=== PATIENT | female | born 1975 | race Caucasian/White ===

== ENCOUNTER → 2017-09-20 | Outpatient (CLI) | payer OTHER ==
[~2017-09-20] MED LIST: ASPI-1471 PO; CHOL500025 PO; DAR100 PO; ESOM20CA31 PO; METXL50 PO; MULT1CAP41 PO; RANI-325 PO
--- NOTE | 2017-09-23 10:54 | RADIOLOGY IMAGING REPORT ---
FACILITY: [facility] - [place] PATIENT NAME: JOSEPH SUAREZ : [id number] MR: [id number] V: [id number] EXAM DATE: [id number] ORDERING PHYSICIAN: MARIELY SCHAFER TECHNOLOGIST: Ana Delacruz PROCEDURE:BILATERAL DIGITAL SCREENING MAMMOGRAM WITH CAD ASSISTED INTERPRETATION & 3D TOMOSYNTHESIS COMPARISON:Prior mammograms 05/29/16, 05/22/16, 12/02/14, 08/27/13, 04/25/12. INDICATIONS:SCREENING FINDINGS: Extremely dense heterogeneous fibroglandular tissue is seen throughout the breasts. The parenchymal pattern has remained stable allowing for difference in mammographic technique & patient positioning. There is no evidence of malignant appearing mass, malignant appearing calcifications or other secondary sign of malignancy in either breast. DIAGNOSTIC CATEGORY 1--NEGATIVE. RECOMMENDATIONS: ROUTINE MAMMOGRAM AND CLINICAL EVALUATION. IMPRESSION: BIRADS 1: Negative. No significant abnormality is seen. Dictated by: Sydney Altamirano M.D. on 09/20/2017 at 14:46 Transcribed by: IVAN on 09/20/2017 at 15:03 Approved by: Sydney Altamirano M.D. on 09/23/2017 at 10:54 [facility]
== END ==
LOC: MAMO 00:14
PROVIDERS: ATTEND Nurse Practitioner Family
DX: Z12.31 Encounter for screening mammogram for malignant neoplasm of breast (principal)
CPT/HCPCS: 77063; 77067

== ENCOUNTER → 2018-07-25 | Outpatient (REF) | payer OTHER ==
[2018-07-25 11:15] LABS: PLATELET COUNT, AUTOMATED 257 K/uL (150-450)
== END ==
PROVIDERS: ATTEND Nurse Practitioner Family
DX: R00.0 Tachycardia, unspecified (principal)
CPT/HCPCS: 82040; 82247; 82310; 82374; 82435; 82565; 82947; 84075; 84132; 84155; 84295; 84450; 84460; 84484; 84520; 85025

== ENCOUNTER → 2018-10-24 | Outpatient (CLI) | payer OTHER ==
[~2018-10-24] MED LIST changes: +OMEG-11 PO
--- NOTE | 2018-10-24 15:46 | RADIOLOGY IMAGING REPORT ---
FACILITY: [facility] - [place] PATIENT NAME: JOSEPH SUAREZ : [id number] MR: [id number] V: [id number] EXAM DATE: ORDERING PHYSICIAN: GIANFRANCO ENRIQUEZ TECHNOLOGIST: Ana Delacruz PROCEDURE: BILATERAL DIGITAL SCREENING MAMMOGRAM WITH CAD ASSISTED INTERPRETATION & 3D TOMOSYNTHESIS. REASON FOR STUDY: Screening. FAMILY HISTORY OF BREAST CANCER: Mother. BREAST PROCEDURES/TREATMENTS: Benign surgical biopsy in the Right breast. COMPARISON: 09/20/17, 05/29/16, 05/22/16, 12/02/14, 08/27/13, 04/25/12. VIEWS OBTAINED: Bilateral 2D & 3D full field CC & MLO projections. BREAST DENSITY: The breasts are heterogeneously dense which can obscure small masses. MAMMOGRAM FINDINGS: In the lateral portion of the Left breast in the middle to posterior depth there is a nodular density as seen on the Left CC view. This is best appreciated on Tomographic slice 7 this is not as well seen on the MLO view of the Left breast however on the Tomographic images this appears to be in the inferior portion. This may be seen on Tomographic slice 9 Left breast Ultrasound is recommended. IMPRESSION: BIRADS 0: Incomplete. Left breast Ultrasound recommended. DIAGNOSTIC CATEGORY 0--INCOMPLETE: NEED ADDITIONAL IMAGING EVALUATION. RECOMMENDATIONS: ULTRASOUND: LEFT BREAST. Dictated by: Sydney Altamirano M.D. on 10/24/2018 at 10:24 Transcribed by: IVAN on 10/24/2018 at 11:17 Approved by: Sydney Altamirano M.D. on 10/24/2018 at 15:42 [facility]
== END ==
LOC: MAMO 00:41
PROVIDERS: ATTEND Obstetrics & Gynecology
DX: R92.2 Inconclusive mammogram (principal); Z80.3 Family history of malignant neoplasm of breast
CPT/HCPCS: 77063; 77067

== ENCOUNTER → 2018-11-06 | Outpatient (CLI) | payer OTHER ==
--- NOTE | 2018-11-11 13:35 | RADIOLOGY IMAGING REPORT ---
FACILITY: [facility] - [place] PATIENT NAME: JOSEPH SUAREZ : [id number] MR: [id number] V: [id number] EXAM DATE: ORDERING PHYSICIAN: GIANFRANCO ENRIQUEZ TECHNOLOGIST: Raul Yun RDMS, LIBBY PROCEDURE:US LEFT BREAST COMPARISON:None. INDICATIONS: Recent mammogram from 10/24/2018 indicated new well circumscribed mass in the lateral aspect of the Left breast felt to be in the inferior aspect on the tomographic image. AREA SCANNED: Ultrasound evaluation of the Left breast from the 12-6 o'clock position of the breast ranging from 2cm up to 7cm deep to the nipple. FINDINGS: Throughout the entire lateral aspect of the Left breast there are numerous well marginated anechoic masses with through transmission consistent with cysts of varying sizes from 3mm up to 1cm in size. Largest cyst is seen at the 6 o'clock position 4cm deep to the nipple that measures 9 x 4 x 1cm in size. It is well marginated. There is increased through transmission. In the 4 & 5 o'clock positions of the Left breast additional well marginated anechoic lesions with through transmission are seen subcentimeter in size. No concerning mass lesions or architectural distortion is seen in any portion of the Left breast. DIAGNOSTIC CATEGORY 3--PROBABLY BENIGN FINDING. RECOMMENDATIONS: SIX MONTH FOLLOW-UP DIAGNOSTIC MAMMOGRAM LEFT BREAST FOR DOCUMENTATION OF STABILITY LATERAL ASPECT OF THE LEFT BREAST IMPRESSION: BIRADS 3: Probably benign finding. There are numerous cysts seen throughout the Left breast laterally. Since the new lesion in the lateral aspect of the Left breast was only well visualized on the CC tomosynthesis images & was not seen to the same degree definitively on the MLO view tomosynthesis images & since none of the other cysts seen on the Ultrasound are seen to the same degree on the tomosynthesis images, I would recommend a follow up 6 month mammogram of the Left breast only to assure stability of what is likely a benign cyst in the lateral aspect of the Left breast. Dictated by: Ivan Nayak M.D. on 11/06/2018 at 15:58 Transcribed by: TONIA on 11/11/2018 at 11:26 Approved by: Ivan Nayak M.D. on 11/11/2018 at 13:31 [facility]
== END ==
LOC: US 01:29
PROVIDERS: ATTEND Obstetrics & Gynecology
DX: R92.8 Other abnormal and inconclusive findings on diagnostic imaging of breast (principal)